=== PATIENT | female | born 1990 | race Caucasian/White ===

== ENCOUNTER 2016-10-27 08:34 | Emergency (ER) | payer SELFPAY ==
[2016-10-27 08:40] VITALS: BMI 26.5
[2016-10-27 08:42] VITALS: RESP 18; O2SAT 100
[2016-10-27] MEDS ORDERED: Naproxen 550 mg Tab PO STA (08:59)
--- NOTE | 2016-10-27 09:00 | C.PDOC ---
History Of Present Illness 26 y/o female presents to the ED complaining of right ankle pain and swelling after she twisted her ankle three hours prior to arrival. She reports that the pain is worse with weight bearing. Patient states she applied some cream to area, but has not taken any pain medication. She denies other injuries, fever, sensory changes. Time Seen by Provider: 10/27/16 08:35 Chief Complaint (Nursing): Lower Extremity Problem/Injury History Per: Patient History/Exam Limitations: no limitations Onset/Duration Of Symptoms: Hrs (3), Sudden Onset, Persistent Current Symptoms Are (Timing): Still Present Severity: Mild - Ankle/Foot Description Of Injury: Twisted Currently Unable To: Bear Weight Past Medical History Reviewed: Historical Data, Nursing Documentation, Vital Signs Vital Signs: Last Vital Signs Temp 97.6 F 10/27/16 10:27 Pulse 69 10/27/16 10:27 Resp 18 10/27/16 10:27 BP 94/68 L 10/27/16 10:27 Pulse Ox 100 10/27/16 11:02 - Medical History PMH: No Chronic Diseases Surgical History: No Surg Hx Family History: States: No Known Family Hx - Social History Hx Tobacco Use: No Hx Alcohol Use: No Hx Substance Use: No - Immunization History Hx Tetanus Toxoid Vaccination: No Hx Influenza Vaccination: No Hx Pneumococcal Vaccination: No Review Of Systems Except As Marked, All Systems Reviewed And Found Negative. Constitutional: Negative for: Fever, Chills Musculoskeletal: Positive for: Other (right ankle pain and swelling) Skin: Negative for: Rash Neurological: Negative for: Weakness, Numbness Physical Exam - Physical Exam Appears: Well, Non-toxic, Other (mildly uncomfortable) Skin: Normal Color, Warm, Dry, No Rash Head: Atraumatic, Normacephalic Cardiovascular: Rhythm Regular Respiratory: Normal Breath Sounds, No Rales, No Rhonchi, No Wheezing Extremity: No Calf Tenderness, Capillary Refill (< 2 seconds all digits ), No Deformity, Other (right ankle - (+) TTP and mild swelling at lateral malleolus, decreased ROM due to pain) Pulses: Left Dorsalis Pedis: Normal, Right Dorsalis Pedis: Normal Neurological/Psych: Oriented x3, Normal Sensation ED Course And Treatment O2 Sat by Pulse Oximetry: 100 (ra) Pulse Ox Interpretation: Normal - Other Rad X-Ray, Right Ankle X-Ray: Viewed By Me, Read By Radiologist Interpretation: Accession No. : [id number]. Patient Name / ID : ELIZABETH FINLEY / [id number]. Exam Date : 10/27/2016 09:01:08 ( Approved ). Study Comment : Sex / Age : F / 26Y. Creator : Azam Hall MD. Dictator : Azam Hall MD. Engineering Technician Parking : Movie Operator : Azam Hall MD. Approver2 : Report Date : 10/27/2016 09:56:19. My Comment : . PROCEDURE: Right Ankle Radiographs. HISTORY: RIGHT ANKLE PAIN, SWELLING S/P TRIP FALL. COMPARISON: None. FINDINGS: BONES: Normal. No fracture. JOINTS: Normal. No osteoarthritis. Ankle mortise maintained. Talar dome intact. SOFT TISSUES: Normal. OTHER FINDINGS: None. IMPRESSION: Normal right ankle radiographs. Progress Note: Right ankle x-ray ordered and reviewed. Patient was given Naproxen PO and ice was applied to the ankle. Xray (-) for acute fx/ dislocation. Ankle stirrup splint applied and crutches provided by cytogenetic technician, checked by me: (+) NV intact. Reevaluation Time: 10:15 Reassessment Condition: Improved (Patient reassessed, pain has improved. She is currently in air caste and crutches, was instructed to follow up with orthopedics within 1 week. She was given Rx for Naprosyn, and understands she should return to ED if symptoms worsen.) Disposition Counseled Patient/Family Regarding: Studies Performed, Diagnosis, Need For Followup, Rx Given - Disposition Referrals: [facility] [Outside] Velasquez Brantley MD [Staff Provider] - Disposition: HOME/ ROUTINE Disposition Time: 10:15 Condition: STABLE Additional Instructions: FOLLOW UP WITH ORTHOPEDICS WITHIN 1 WEEK USE MEDICATION NEEDED ELEVATE LEG MUCH POSSIBLE, AND APPLY ICE FOR 20 MIN, SEVERAL TIMES DAILY RETURN TO ER IF SYMPTOMS WORSEN Prescriptions: Naproxen [Naprosyn Tab] 375 mg PO BID PRN #25 tab PRN Reason: pain Instructions: Ankle Sprain (ED), Ankle Stirrup Splint (ED), Crutch Instructions (ED) Print Language: KINYARWANDA - POA Present On Arrival: Falls Or Trauma - Clinical Impression Clinical Impression: Right ankle sprain - Scribe Statement The provider has reviewed the documentation as recorded by the Scribe (Megha Jin) Provider Attestation: All medical record entries made by the Bertaibe were at my direction and personally dictated by me. I have reviewed the chart and agree that the record accurately reflects my personal performance of the history, physical exam, medical decision making, and the department course for this patient. I have also personally directed, reviewed, and agree with the discharge instructions and disposition.
[2016-10-27] MEDS ORDERED: Naproxen 550 mg Tab PO ONE (09:17)
--- NOTE | 2016-10-27 09:57 | RAD ---
PROCEDURE: Right Ankle Radiographs. HISTORY: RIGHT ANKLE PAIN, SWELLING S/P TRIP FALL COMPARISON: None FINDINGS: BONES: Normal. No fracture. JOINTS: Normal. No osteoarthritis. Ankle mortise maintained. Talar dome intact SOFT TISSUES: Normal. OTHER FINDINGS: None. IMPRESSION: Normal right ankle radiographs.
[2016-10-27 10:33] VITALS: BP 94/68; PULSE 69; TEMP 97.6
== END 2016-10-27 10:44 | disposition home or self-care (01) ==
LOC: C.ER 08:34
DX: S93.401A Sprain of unspecified ligament of right ankle, initial encounter (principal); X50.9XXA Other and unspecified overexertion or strenuous movements or postures, initial encounter; Y93.9 Activity, unspecified; Y92.9 Unspecified place or not applicable
CPT/HCPCS: 29515; 73610; 97116; 97161; 99284; G8978; G8979; G8980

== ENCOUNTER 2017-05-28 19:22 | Emergency (ER) | payer SELFPAY ==
[2017-05-28 19:22] VITALS: BMI 26.5
[2017-05-28 19:46] VITALS: TEMP 98
--- NOTE | 2017-05-28 20:04 | C.PDOC ---
History Of Present Illness 27 y/o female presents to the ED c/o diarrhea, cramping for the last three days. The patient states, " Every time I eat I immediately have diarrhea". The patient has been taking an unknown antibiotic for three days for a sore throat infection and it finished three days ago. The patient denies fever, nausea, and vomiting. CO DIARRHEA, CRAMPING X 3 DAYS. PS "EVERY TIME I EAT I IMMEDIATELY HAVE DIARRHEA ". NO FEVER, NV. S/P UNK ABX X 3 DAYS FOR THROAT INFECTION, FINISHED 3 DAYS AGO. EXAM NONTOXIC ABD SOFT NT ND NO R/G REMAINDER NEG Time Seen by Provider: 05/28/17 19:54 Chief Complaint (Nursing): Abdominal Pain History Per: Patient History/Exam Limitations: no limitations Onset/Duration Of Symptoms: Days Current Symptoms Are (Timing): Still Present Past Medical History Reviewed: Historical Data, Nursing Documentation, Vital Signs Vital Signs: Last Vital Signs Temp 98 F 05/28/17 19:44 Pulse 80 05/28/17 19:44 Resp 14 05/28/17 19:44 BP 108/76 05/28/17 19:44 Pulse Ox 99 05/28/17 21:03 Surgical History: No Surg Hx Family History: States: No Known Family Hx - Social History Hx Tobacco Use: No Hx Alcohol Use: No Hx Substance Use: No - Immunization History Hx Tetanus Toxoid Vaccination: No Hx Influenza Vaccination: No Hx Pneumococcal Vaccination: No Review Of Systems Except As Marked, All Systems Reviewed And Found Negative. Constitutional: Negative for: Fever Respiratory: Negative for: Cough, Shortness of Breath Gastrointestinal: Positive for: Abdominal Pain (cramping ), Diarrhea (every time after eating ). Negative for: Nausea, Vomiting Physical Exam - Physical Exam Appears: Non-toxic, No Acute Distress Skin: Warm, Dry Head: Atraumatic, Normacephalic Oral Mucosa: Moist Throat: Normal Neck: Supple Chest: Symmetrical Cardiovascular: Rhythm Regular Respiratory: Normal Breath Sounds, No Rales, No Rhonchi, No Wheezing Gastrointestinal/Abdominal: Soft, No Tenderness, No Distention, No Guarding, No Rebound Extremity: Capillary Refill (<2sec.) Neurological/Psych: Oriented x3, Normal Speech, Normal Cognition Gait: Steady ED Course And Treatment - Laboratory Results Result Diagrams: 05/28/17 20:23 05/28/17 20:23 Urine POC: Negative O2 Sat by Pulse Oximetry: 99 (RA) Progress Note: The patient was administered Blood Work, Saline Lock , 3ml NS Flush, PRN STAT, Atropine/Diphenoxylate [Lomotil 0.025-2.5mg tablet], Dicyclomine (Bentyl), and Poc Urine Test STAT. The results for the exams were unremarkable. The patient is resting comfortably. The patient no longer has any cramping and diarrhea. Upon reasssessment, the patient is afebrile and is PO tolerant. The patient is advised to have a 1-2 day follow up with her PMD for further evaluation. Disposition Counseled Patient/Family Regarding: Studies Performed, Diagnosis, Need For Followup, Rx Given - Disposition Referrals: [facility] [Outside] [facility]] Disposition: HOME/ ROUTINE Disposition Time: 21:05 Condition: IMPROVED Prescriptions: Atropine/Diphenoxylate [Lonox 0.025 MG-2.5 MG] 1 tab PO Q6 PRN #12 tab PRN Reason: Diarrhea Metronidazole [Flagyl] 500 mg PO TID #30 tab Instructions: Acute Diarrhea (ED) Forms: [employer] (Gambian) - Clinical Impression Clinical Impression: Diarrhea - Scribe Statement The provider has reviewed the documentation as recorded by the Scribpat Gonzalez All medical record entries made by the Scribe were at my direction and personally dictated by me. I have reviewed the chart and agree that the record accurately reflects my personal performance of the history, physical exam, medical decision making, and the department course for this patient. I have also personally directed, reviewed, and agree with the discharge instructions and disposition.
[2017-05-28] MEDS ORDERED: Atropine-Diphenoxylate 0.025-2.5 mg Tab PO STA (20:05)
[2017-05-28] MEDS ORDERED: Atropine-Diphenoxylate 0.025-2.5 mg Tab ONE (20:30)
[2017-05-28 20:31] LABS: BASO % 0.5 % (0.0-2.0); EOS % 0.4 % (0.0-4.0); HEMATOCRIT 38.6 % (34.0-47.0); LYMPH # 3.6 K/uL (1.0-4.3); LYMPH % 36.3 % (20.0-40.0); MEAN CELL VOLUME 75.5 fL (81.0-99.0); MEAN CORPUSCULAR HEMOGLOBIN 24.5 pg (27.0-31.0); MEAN CORPUSCULAR HGB CONC 32.4 g/dL (33.0-37.0); MEAN PLATELET VOLUME 7.7 fL (7.2-11.7); MONO # 0.6 K/uL (0.0-0.8); MONO % 5.6 % (0.0-10.0); NRBC % 0.1 % (0.0-2.0); RED CELL DISTRIBUTION WIDTH 15.9 % (11.5-14.5); WHITE BLOOD COUNT 9.8 K/uL (4.8-10.8)
[2017-05-28 20:37] LABS: CHLORIDE 102 mmol/L (98-107); POTASSIUM 3.8 mmol/L (3.6-5.2); SODIUM 136 mmol/L (132-148)
[2017-05-28 20:40] LABS: BLOOD UREA NITROGEN 9 mg/dL (7-17); CARBON DIOXIDE 23 mmol/L (22-30); GFR AFRICAN-AMERICAN > 60
[2017-05-28 20:41] LABS: CALCIUM 8.7 mg/dl (8.6-10.4); GLUCOSE,RANDOM 71 mg/dL (65-105)
[2017-05-28 21:16] VITALS: BP 134/84; PULSE 88; RESP 18; O2SAT 96
== END 2017-05-28 21:20 | disposition home or self-care (01) ==
LOC: C.ER 19:22
DX: R19.7 Diarrhea, unspecified (principal)
CPT/HCPCS: 80048; 85025; 96372; 99284; J0500